=== PATIENT | female | born 1990 | race Caucasian/White ===

== ENCOUNTER 2022-08-17 12:58 | Outpatient (CLI) | payer OTHER | END 2022-08-17 13:05 | disposition home or self-care (01) | LOC: SONOGRAMA 12:58 | PROVIDERS: ATTEND Obstetrics & Gynecology | DX: O35.8XX0 Maternal care for other (suspected) fetal abnormality and damage, not applicable or unspecified (principal) ==

== ENCOUNTER 2022-10-29 13:32 | Inpatient (IN) | payer OTHER ==
[~2022-10-29] VITALS: Ht 170.2 cm; Wt 71.7 kg
[2022-11-03] MEDS ORDERED: PRENATAL 19 CH1 EACH PO (12:48)
== END 2022-11-06 17:26 | disposition home or self-care (01) | DRG 788 ==
LOC: LDR 11-03 10:58 → OB/GYN 11-03 19:46
PROVIDERS: ADMIT Obstetrics & Gynecology; ATTEND Obstetrics & Gynecology
PROC: 4A1HXCZ Monitoring of Products of Conception, Cardiac Rate, External Approach (ICD-10-PCS; 2022-11-03)
PROC: 10D00Z1 Extraction of Products of Conception, Low, Open Approach (ICD-10-PCS; principal; 2022-11-03 19:54)
DX: O62.1 Secondary uterine inertia (principal); Z3A.39 39 weeks gestation of pregnancy; Z37.0 Single live birth; Z20.822 Contact with and (suspected) exposure to COVID-19